=== PATIENT | male | born 1955 | race Caucasian/White ===

== ENCOUNTER 2017-01-31 14:04 | Outpatient (CLI) | payer OTHER ==
--- NOTE | 2017-01-31 16:02 | Diagnostic Imaging Report ---
ANA SWENSON [facility] [address] [facility].[address] [id number] Report Submission Date: Jan 31, 2017 3:49:33 PM CDT Patient Study Name: NGUYEN LUDWIG III Date: Jan 31, 2017 2:06:19 PM CDT Modality Type: CR Gender: M Description: LOWER EXTREMITY : 55 Institution: [facility] Physician: ANA SWENSON Examination: Plain film foot History: Discomfort Findings: 3 views of the foot demonstrates articular degenerative changes. No fracture or dislocation. Posterior and inferior calcaneal spurs. No soft tissue swelling. No joint effusion. Impression: Degenerative changes and calcaneal spurs. No fracture. Electronically signed on Jan 31, 2017 3:49:33 PM CDT by: Keven YAÑEZ
== END 2017-01-31 14:10 ==
LOC: RAD 14:04
PROVIDERS: ATTEND Family Medicine
DX: M79.672 Pain in left foot (principal)
CPT/HCPCS: 73630

== ENCOUNTER 2017-11-16 18:43 | Emergency (ER) | payer OTHER ==
[2017-11-16] MEDS ORDERED: ASPIRIN 81 MG CHEW TAB PO ONE (18:53)
--- NOTE | 2017-11-16 18:53 | ED Physician Documentation ---
General Adult - HISTORIAN Historian: patient - HPI Chief Complaint: Chest Pain Additional Information: 62yo white male who developed some sudden epigastric/ chest pain described as sharp achy pain that almost made him lose consciousness. Lasted for only a short while, less then a minute and then eased down. On admission it was a 1/10 or less. No precipitating factor noted other then some possible stress. Patient has had some chest pain in the past. 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 Patient states that he ahs had problems with anxiety and panic attacks and has been under a lot of stress recently. Patient denies any indigestion problems, no leg swelling, no history of blood clots. Onset: minutes (20) Timing: still present, better Severity: mild Modifying Factors: nothing Context: no precipitating factor Quality: dull pian now Further Comments: no - ROS CONST: no problems - PAST HX Past History: other (anxiety) Other History: none Surgeries/Procedures: other (nasal polyps) Immunizations: referred to PCP Allergies/Adverse Reactions: Allergies Allergy/AdvReac Type Severity Reaction Status Date / Time No Known Allergies Allergy Verified 11/16/17 18:50 Home Medications: Ambulatory Orders Medication Instructions Recorded Gabapentin [Gabapentin] 400 mg PO TID 11/16/17 amLODIPine BESYLATE [Norvasc] 5 mg PO D 11/16/17 - SOCIAL HX Smoking History: non-smoker Alcohol Use: occasionally Drug Use: none - FAMILY HX Family History: No - REVIEWED ASSESSMENTS Nursing Assessment Reviewed: Yes Vitals Reviewed: Yes General Adult Physical Exam - PHYSICAL EXAM GENERAL APPEARANCE: mild distress EENT: ENT inspection normal NECK: normal inspection, thyroid normal, supple RESPIRATORY: no resp distress, chest non-tender, breath sounds normal. No: wheezes, rales, rhonchi CVS: reg rate & rhythm, heart sounds normal, equal pulses, no murmur, no gallop ABDOMEN: soft, no organomegaly, normal bowel sounds SKIN: warm/dry, normal color, cyanosis EXTREMITIES: non-tender, normal range of motion, no evidence of injury, no edema NEURO: oriented X3, CN's nml as tested, mood/affect nml, cognition normal Discharge Clincal Impression: Atypical chest pain Referrals: Katy Alvarez MD [Primary Care Provider] - 2 Days Additional Instructions: Home and rest tonight. Continue with present medications. I will send copy of labs to Dr Richards to discuss mildly elevated liver test and creatinine. Condition: Stable Disposition: 01 HOME, SELF-CARE Decision to Admit: NO Date of Decison to Admit: 11/16/17 Decision Time: 21:45
[2017-11-16] MEDS ORDERED: ASPIRIN 81 MG CHEW TAB ONE (18:55)
[2017-11-16 19:09] LABS: BASOPHILS % 0.9 (0.0-1.5); MEAN CORPUSCULAR HEMOGLOBIN 33.1 pg (28.0-34.0); MEAN CORPUSCULAR VOLUME 97.3 fl (80.0-100.0); MONOCYTES % 4.7 % (0.0-11.0); NEUTROPHILS # 6.1 # k/uL (1.4-7.7)
--- NOTE | 2017-11-16 19:43 | Diagnostic Imaging Report ---
[facility] [address] [facility].[address] [id number] Report Submission Date: Nov 16, 2017 7:14:25 PM CDT Patient Study Name: NGUYEN LUDWIG Date: Nov 16, 2017 6:57:23 PM CDT Modality Type: DX Gender: M Description: CHEST : 55 Institution: [facility] Physician: WILDER MULLEN 2 views of the chest History: PT STATES CHEST PAIN FOR TODAY No comparison studies are available Heart is normal in size. There is no focal consolidation, pleural effusion or pneumothorax No acute osseous pathology Impression: 1. No focal consolidation or pleural effusion. Electronically signed on Nov 16, 2017 7:14:25 PM CDT by: Ranjana YAÑEZ
[2017-11-16 20:15] VITALS: BP 144/99
== END 2017-11-16 19:55 | disposition home or self-care (01) ==
LOC: ED 18:43
DX: R07.89 Other chest pain (principal)
CPT/HCPCS: 71046; 80053; 84484; 85025; 85379; 99283; S1016

== ENCOUNTER 2019-07-15 22:03 | Emergency (ER) | payer OTHER ==
--- NOTE | 2019-07-15 22:14 | ED Physician Documentation ---
General Adult - HISTORIAN Historian: patient - HPI Stated Complaint: elevated blood pressure, tingling R face & elbow Chief Complaint: General Adult Onset: minutes Timing: better Severity: mild Further Comments: yes (Pt is a 63 yo male with elevated blood pressure and transient episode of tingling on the R side of his face and over his R elbow. 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 Pt states that he had been taking daily aspirin, but that this was d/c'd. Pt has anxiety and thinks that the tingling provoked his anxiety. Pt had elevated bp on presentation) - ROS CONST: other (anxiety) EYES/ENT: none CVS/RESP: none GI/: none MS/SKIN/LYMPH: none NEURO/PSYCH: other (transient tingling R side of face and R elbow) - PAST HX Past History: hypertension, other (evidence of thalamic stroke seen on MRI) Allergies/Adverse Reactions: Allergies Allergy/AdvReac Type Severity Reaction Status Date / Time ether Allergy Verified 07/15/19 23:19 Home Medications: Ambulatory Orders Medication Instructions Recorded Gabapentin 400 mg PO TID 11/16/17 amLODIPine BESYLATE [Norvasc] 5 mg PO D 11/16/17 Clonazepam 0.5 mg PO PRN PRN 07/15/19 Losartan Potassium [Cozaar] 25 mg PO DAILY 07/15/19 - SOCIAL HX Smoking History: non-smoker - FAMILY HX Family History: No - VITAL SIGNS Vital Signs: Vital Signs Temp Pulse Resp BP Pulse Ox 144/99 11/16/17 20:13 - REVIEWED ASSESSMENTS Nursing Assessment Reviewed: Yes Vitals Reviewed: Yes Progress - Progress Progress: Ativan 1 mg po BP 188/107 --> 151/97 BP 168/98 Losartan 25 mg po BP 142/89 Pt is uncertain whether he has had carotid doppler u/s. Will f/u with pcp in am re: carotid doppler and f/u for bp eval. Consider resumption of daily aspirin. General Adult Physical Exam - PHYSICAL EXAM GENERAL APPEARANCE: moderate distress (anxious) EENT: eye inspection normal, pharynx normal NECK: normal inspection, supple RESPIRATORY: no resp distress, chest non-tender, breath sounds normal CVS: reg rate & rhythm, heart sounds normal ABDOMEN: soft, no organomegaly, normal bowel sounds BACK: normal inspection, no CVA tenderness SKIN: warm/dry, normal color EXTREMITIES: non-tender, normal range of motion, no evidence of injury NEURO: oriented X3, CN's nml as tested, motor nml, sensation nml, other (anxious) Discharge Clincal Impression: Anxiety, Hypertension Referrals: Katy Alvarez MD [Primary Care Provider] - Condition: Stable Disposition: 01 HOME, SELF-CARE Decision to Admit: NO Decision Time: 01:17
[2019-07-15] MEDS ORDERED: LORazepam 0.5 MG TABLET PO ONE (22:30)
[2019-07-16] MEDS ORDERED: LOSARTAN POTASSIUM 50 MG TABLET PO ONE (00:38)
[2019-07-16 02:18] VITALS: BP 142/89
[2019-07-16 06:49] LABS: BASOPHILS % 0.6 % (0.0-1.5)
[2019-07-16 06:51] LABS: eGFR (Non-African) 55
== END 2019-07-16 01:30 | disposition home or self-care (01) ==
LOC: ED 22:03
DX: F41.9 Anxiety disorder, unspecified (principal); I10 Essential (primary) hypertension
CPT/HCPCS: 80053; 85025; 99283; 99284